=== PATIENT | male | born 1950 | race Two or more races ===

== ENCOUNTER 2018-01-20 19:40 | Emergency (ER) | payer OTHER, MEDICAID ==
[~2018-01-20] VITALS: Ht 165.1 cm; Wt 83.5 kg
[2018-01-20 20:39] LABS: Basophils # (auto) 0.1 uL; Basophils % (auto) 0.7 % (0.0-2.0); Eosinophils # (auto) 0.2 uL; Hematocrit 40.4 % (41.0-53.0); Hemoglobin 13.7 g/dL (13.5-17.5); Lymphocytes # (auto) 2.5 uL; Lymphocytes % (auto) 32.9 % (10.0-50.0); Mean Corpuscular Hemoglobin 30.2 pg (28.0-32.0); Mean Corpuscular Hgb Conc. 33.8 g/dL (32.0-36.0); Mean Corpuscular Volume 89.3 fL (80.0-100.0); Monocytes # (auto) 0.8 uL; Monocytes % (auto) 10.1 % (0.0-12.0); Neutrophils % (auto) 53.3 % (37.0-80.0); Nucleated Red Blood Cells % 0.1 %; Platelet Count (auto) 161 10^3/uL (140-450); Red Blood Cells 4.53 10^6/uL (4.5-5.90); Red Cell Distribution Width 12.4 % (11.8-14.3); White Blood Cell 7.5 10^3/uL (4.4-10.8)
[2018-01-20 20:48] LABS: Albumin 3.3 g/dL (3.4-5.0); Anion Gap 9 (5-15); Blood Urea Nitrogen 18 mg/dL (7-18); Calcium 8.5 mg/dL (8.5-10.1); Carbon Dioxide 23 mmol/L (21-32); Chloride 106 mmol/L (98-107); Glucose 309 mg/dL (74-106); Potassium 4.2 mmol/L (3.5-5.1); Sodium 138 mmol/L (136-145)
[2018-01-20 20:49] LABS: Alanine Aminotransferase 53 U/L (16-61); Aspartate Aminotransferase 33 U/L (15-37); BUN/Creatinine Ratio 22.2; GFR African American 123 mL/min; GFR Non-African American 101 mL/min
[2018-01-20 20:54] LABS: Alkaline Phosphatase 92 U/L (45-117); Bilirubin, Total 0.4 mg/dL (0.2-1.0); Total Protein 7.1 g/dL (6.4-8.2)
[2018-01-21 07:44] VITALS: BP 126/82
[2018-01-21] MEDS ORDERED: NITROGLYCERIN 0.4 MG SL TAB SL ONE (09:30)
[2018-01-21] MEDS ORDERED: ASPirin 81 mg TAB PO ONE (09:30)
[2018-01-21] MEDS ORDERED: InsuLIN REG 1unit/0.01ml Soln (100units/ml) SC ONE (09:45)
== END 2018-01-21 11:27 | disposition home or self-care (01) ==
LOC: ER 19:47
DX: R07.89 Other chest pain (principal); E11.9 Type 2 diabetes mellitus without complications; I10 Essential (primary) hypertension; R10.13 Epigastric pain
CPT/HCPCS: 36415; 71046; 80053; 82962; 84484; 85025; 93005; 96372; 99285; J1815